=== PATIENT | female | born 1995 | race Caucasian/White ===

== ENCOUNTER 2020-04-16 14:13 | Emergency (ER) | payer OTHER, BC ==
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
[2020-04-16] MEDS ORDERED: DIPHENHYDRAMINE HCL 25 MG CAPSULE PO ONE (20:46)
[2020-04-16] MEDS ORDERED: PROCHLORPERAZINE MALEATE 10 MG TABLET PO ONE (20:46)
[2020-04-16 20:48] VITALS: BP 124/80
== END 2020-04-16 21:00 | disposition home or self-care (01) ==
LOC: ER 14:13
DX: S16.1XXA Strain of muscle, fascia and tendon at neck level, initial encounter (principal); S39.012A Strain of muscle, fascia and tendon of lower back, initial encounter; S09.90XA Unspecified injury of head, initial encounter; R59.0 Localized enlarged lymph nodes; R07.81 Pleurodynia; H69.81 Other specified disorders of Eustachian tube, right ear; Y04.2XXA Assault by strike against or bumped into by another person, initial encounter; Y99.0 Civilian activity done for income or pay; F17.210 Nicotine dependence, cigarettes, uncomplicated; D68.2 Hereditary deficiency of other clotting factors; Z88.6 Allergy status to analgesic agent
CPT/HCPCS: 99406; 99284; 81025; 73564; 70450; 72125; 72128; 72131; S0183